=== PATIENT | female | born 1965 | race Caucasian/White ===

== ENCOUNTER → 2019-04-12 | Day surgery (SDC) | payer MEDICAID ==
[2019-04-12] VITALS (7 sets, daily range): BP systolic 103–125; BP diastolic 67–89
[~2019-04-12] MED LIST: ANESTHESIA TRAY IN PYXIS 1 EA TRAY MC ONE; HYDROCODONE/APAP 5/325MG 1 EACH TABLET PO PRN; HYDROMORPHONE 1 MG/1 ML DISP.SYRIN ONE; LIDOCAINE HCL/MPF 1% 30 ML VIAL IJ ONE; MEPERIDINE HCL/PF 100 MG/ML DISP.SYRIN ONE; METOCLOPRAMIDE HCL 10 MG/2 ML VIAL ONE; ONDANSETRON HCL/PF 4 MG/2 ML VIAL IV PRN; TRAM50TA2 PO; TRAMADOL HCL 50 MG TABLET PO PRN; methylPREDNISolone ACETATE 80 MG/ML VIAL ONE
--- NOTE | 2019-04-12 05:49 | NUR ---
blood glucose 95
--- NOTE | 2019-04-12 07:20 | NUR ---
RN NOTES RECEIVED REPORT FROM PREVIOUS SHIFT. PATIENT CURRENTLY IN OR.
--- NOTE | 2019-04-12 08:46 | NUR ---
MS RN NOTES PATIENT BACK IN UNIT. REPORT RECEIVED FROM EMELY ACOSTA. PATIENT AWAKE, A/O X 4. NO ACUTE DISTRESS. VS STABLE. WITH NEW ORDERS NOTED. NOTED ORDER FOR NORCO PRN. VERIFIED ACETAMINOPHEN ALLERGY WITH PATIENT AND VERBALIZED THAT SHE GETS NAUSEOUS WHEN SHE TAKES ACETAMINOPHEN. RITCHIE CALLAWAY PRESENT AT UNIT AND MADE AWARE. WITH NEW ORDERS FOR ZOFRAN 4MG IV Q6 PRN AND TRAMADOL 50MG PO Q8 PRN. ORDERS NOTED AND CARRIED OUT. PATIENT MADE AWARE, AGREED AND VERBALIZED UNDERSTANDING. WILL CONTINUE TO MONITOR
--- NOTE | 2019-04-12 14:23 | NUR ---
RN NOTES PATIENT WITH ORDER FOR DISCHARGE HOME FROM DR MEDINA. DR SAMMI GARDNER MADE AWARE AND GAVE OK, CLEARED PATIENT TO DISCHARGE HOME WELL. DISCHARGE INSTRUCTIONS AND EDUCATION PROVIDED TO PATIENT AND VERBALIZED UNDERSTANDING. PATIENT ABLE TO AMBULATE TO BATHROOM WITHOUT DIFFICULTY, WITH STAND BY ASSISTANCE. ABLE TO UTILIZE WALKER. ALL BELONGINGS COMPLETE ON DISCHARGE, NO REPORT OF MISSING INVENTORY. IV REMOVED WITH TIP INTACT, PRESSURE DRESSING PLACED ON SITE. PATIENT LEFT UNIT VIA WHEELCHAIR. PATIENT BREATHING EVEN AND UNLABORED. NO ACUTE DISTRESS. DENIES ANY PAIN OR DISCOMFORT. NO NEW SKIN BREAKDOWN ON DISCHARGE. LEFT HOSPITAL PREMISES VIA PRIVATE CAR ACCOMPANIED BY PARENTS. MD AWARE OF DISCHARGE
== END | disposition home or self-care (01) ==
LOC: DS 05:32 → UNDOADMIN 05:37 → MED 05:37 → UNDODISIN 14:20
PROVIDERS: ATTEND Specialist
DX: S83.282A Other tear of lateral meniscus, current injury, left knee, initial encounter (principal); S83.242A Other tear of medial meniscus, current injury, left knee, initial encounter; X58.XXXA Exposure to other specified factors, initial encounter; Y93.89 Activity, other specified; Y92.89 Other specified places as the place of occurrence of the external cause; Y99.8 Other external cause status; I10 Essential (primary) hypertension; Z79.899 Other long term (current) drug therapy
CPT/HCPCS: 29880; 36415; 82962; 87081; 88304; 88311; A4217; A6253; J0360; J0690; J1040; J1100; J1170; J1885; J2175; J2405; J2765; J3490 ×3; G0378